=== PATIENT | female | born 1990 | race Two or more races ===

== ENCOUNTER 2017-07-16 09:27 | Emergency (ER) | payer MEDICAID ==
[~2017-07-16] VITALS: Ht 162.6 cm; Wt 68.0 kg
[2017-07-16] MEDS ORDERED: NKM (09:36)
[2017-07-16 09:40] VITALS: BP 105/66
[2017-07-16 10:05] LABS: APPEARANCE,URINE CLEAR; BILIRUBIN, URINE NEGATIVE (NEGATIVE); COLOR,URINE PALE YELLOW; GLUCOSE, URINE (UA) NEGATIVE (NEGATIVE); HEMATOCRIT 41.1 % (37.0-47.0); HEMOGLOBIN 13.2 G/DL (12.0-16.0); KETONES,URINE NEGATIVE (NEGATIVE); LEUKOCYTE ESTERASE ,URINE 2+ (NEGATIVE); MEAN CORPUSCULAR VOLUME 88 FL (80-99); NITRITE,URINE NEGATIVE (NEGATIVE); PH,URINE 5 (4.5-8.0); PLATELET COUNT 272 K/UL (150-450); PROTEIN,URINE NEGATIVE (NEGATIVE); RED BLOOD COUNT 4.69 M/UL (4.20-5.40); RED CELL DISTRIBUTION WIDTH 12.5 % (11.6-14.8); UROBILINOGEN,URINE NORMAL MG/DL (0.0-1.0); WHITE BLOOD COUNT 15.7 K/UL (4.8-10.8)
[2017-07-16 10:21] LABS: ALANINE AMINOTRANSFERASE 16 U/L (12-78); ALKALINE PHOSPHATASE 71 U/L (46-116); ANION GAP 12 mmol/L (5-15); ASPARTATE AMINO TRANSFERASE 14 U/L (15-37); BILIRUBIN,TOTAL 0.7 MG/DL (0.2-1.0); BLOOD UREA NITROGEN 12 mg/dL (7-18); CALCIUM 8.8 MG/DL (8.5-10.1); CARBON DIOXIDE 23 MMOL/L (21-32); CHLORIDE 104 MMOL/L (98-107); CREATININE 0.7 MG/DL (0.55-1.30); POTASSIUM 3.5 MMOL/L (3.5-5.1); SODIUM 139 MMOL/L (136-145)
--- NOTE | 2017-07-16 11:02 | Emergency Room Report ---
History of Present Illness General Chief Complaint: Abdominal Pain Source: Patient Present Illness [facility] Patient complains of mid abdominal pain epigastric and mid abdominal Started last night patient denies any vomiting or diarrhea Denies any chest pain or shortness of breath pain is 3/10 Patient denies any vaginal discharge denies any fall or trauma Pain is a burning sensation and squeezing Denies any other focal weakness Denies any change with eating or position Allergies: Coded Allergies: No Known Allergies (Unverified , 07/16/17) Patient History Past Medical History: see triage record Pertinent Family History: none Last Menstrual Period: Two weeks ago Now: No Reviewed Nursing Documentation: PMH: Agreed, PSxH: Agreed Nursing Documentation-PMH Past Medical History: No Stated History Review of Systems All Other Systems: negative except mentioned in HPI Physical Exam Vital Signs Date Time Temp Pulse Resp B/P (MAP) Pulse Ox O2 Delivery O2 Flow Rate FiO2 07/16/17 09:33 98.8 81 16 118/78 99 Room Air Sp02 EP Interpretation: reviewed, normal General Appearance: well appearing, no apparent distress Head: normocephalic, atraumatic Eyes: bilateral eye PERRL, bilateral eye EOMI ENT: hearing grossly normal, normal pharynx, TMs + canals normal, uvula midline Neck: full range of motion, supple, no meningismus, no bony tend Respiratory: lungs clear, normal breath sounds, no rhonchi, no respiratory distress, no retraction, no accessory muscle use Cardiovascular #1: normal peripheral pulses, regular rate, rhythm, no edema, no gallop, no JVD, no murmur Gastrointestinal: normal bowel sounds, non tender - On palpation however subjectively points to the mid epigastric mid abdominal area, , soft, no mass, no organomegaly, non-distended, no guarding, no hernia, no pulsatile mass, no rebound Genitourinary: no CVA tenderness Musculoskeletal: normal inspection Neurologic: oriented x3, responsive, motor bike mechanic III-XII nml as tested, motor strength/ tone normal, sensory intact Psychiatric: mood/affect normal Skin: normal color, no rash, warm/dry, palpation normal Lymphatic: normal inspection, no adenopathy Medical Decision Making Diagnostic Impression: Primary Impression: Abdominal pain ER Course With the patient's history and examination, multiple differentials considered, including but not limited to , ectopic , ovarian torsion, gastritis, cholecystitis, pancreatitis, appendicitis Patient's blood work revealed a mildly elevated white blood cell count given the nonspecificity of the discomfort and the patient's presentation CAT scan imaging was evaluated and performed show some questionable enteritis pathology but no other emergent pathology Given this patient was placed on oral antibiotics and will have close outpatient followup Labs Test 07/16/17 09:40 White Blood Count 15.7 K/UL (4.8-10.8) Red Blood Count 4.69 M/UL (4.20-5.40) Hemoglobin 13.2 G/DL (12.0-16.0) Hematocrit 41.1 % (37.0-47.0) Mean Corpuscular Volume 88 FL (80-99) Mean Corpuscular Hemoglobin 28.2 PG (27.0-31.0) Mean Corpuscular Hemoglobin Concent 32.1 G/DL (32.0-36.0) Red Cell Distribution Width 12.5 % (11.6-14.8) Platelet Count 272 K/UL (150-450) Mean Platelet Volume 6.4 FL (6.5-10.1) Neutrophils (%) (Auto) % (45.0-75.0) Lymphocytes (%) (Auto) % (20.0-45.0) Monocytes (%) (Auto) % (1.0-10.0) Eosinophils (%) (Auto) % (0.0-3.0) Basophils (%) (Auto) % (0.0-2.0) Differential Total Cells Counted 100 Neutrophils % (Manual) 86 % (45-75) Lymphocytes % (Manual) 10 % (20-45) Monocytes % (Manual) 4 % (1-10) Eosinophils % (Manual) 0 % (0-3) Basophils % (Manual) 0 % (0-2) Band Neutrophils 0 % (0-8) Platelet Estimate Adequate Platelet Morphology Normal Red Blood Cell Morphology Normal Urine Color Pale yellow Urine Appearance Clear Urine pH 5 (4.5-8.0) Urine Specific [place] 1.020 (1.005-1.035) Urine Protein Negative (NEGATIVE) Urine Glucose (UA) Negative (NEGATIVE) Urine Ketones Negative (NEGATIVE) Urine Occult Blood Negative (NEGATIVE) Urine Nitrite Negative (NEGATIVE) Urine Bilirubin Negative (NEGATIVE) Urine Urobilinogen Normal MG/DL (0.0-1.0) Urine Leukocyte Esterase 2+ (NEGATIVE) Urine RBC 0-2 /HPF (0 - 2) Urine WBC 2-4 /HPF (0 - 2) Urine Squamous Epithelial Cells Moderate /LPF (NONE/OCC) Urine Bacteria Few /HPF (NONE) Urine HCG, Qualitative Negative Sodium Level 139 MMOL/L (136-145) Potassium Level 3.5 MMOL/L (3.5-5.1) Chloride Level 104 MMOL/L (98-107) Carbon Dioxide Level 23 MMOL/L (21-32) Anion Gap 12 mmol/L (5-15) Blood Urea Nitrogen 12 mg/dL (7-18) Creatinine 0.7 MG/DL (0.55-1.30) Estimat Glomerular Filtration Rate > 60 mL/min (>60) Glucose Level 98 MG/DL (74-106) Calcium Level 8.8 MG/DL (8.5-10.1) Total Bilirubin 0.7 MG/DL (0.2-1.0) Aspartate Amino Transf (AST/SGOT) 14 U/L (15-37) Alanine Aminotransferase (ALT/SGPT) 16 U/L (12-78) Alkaline Phosphatase 71 U/L (46-116) Total Protein 8.0 G/DL (6.4-8.2) Albumin 4.0 G/DL (3.4-5.0) Globulin 4.0 g/dL Albumin/Globulin Ratio 1.0 (1.0-2.7) Lipase 165 U/L (73-393) CT/MRI/US Diagnostic Results CT/MRI/US Diagnostic Results : Impression cT abdomen pelvisImpression: Small bowel enteritis suspected involving distal small bowel, especially terminal ileum. Findings are suspicious for inflammatory bowel disease. Please correlate clinically. No abscess or evidence of perforation identified. Last Vital Signs Date Time Temp Pulse Resp B/P (MAP) Pulse Ox O2 Delivery O2 Flow Rate FiO2 07/16/17 09:40 98.6 79 16 105/66 100 Room Air Status: improved Disposition: HOME, SELF-CARE Condition: Improved Scripts Famotidine (PEPCID) 40 Mg Tablet 40 MG PO DAILY, #7 TAB 0 Refills Prov: JIAN GARRISON D.O. 07/16/17 Ondansetron Odt* (ZOFRAN ODT*) 4 Mg Tab.rapdis 4 MG ORAL Q6H Y for Nausea & Vomiting, #10 TAB 0 Refills Prov: JIAN GARRISON D.O. 07/16/17 Ciprofloxacin Hcl* (CIPROFLOXACIN HCL*) 500 Mg Tablet 500 MG ORAL Q12H, #10 TAB 0 Refills Prov: JIAN GARRISON D.O. 07/16/17 Referrals: NOT CHOSEN IPA/MD,REFERRING (PCP) Additional Instructions: Patient is provided with the discharge instructions notified to follow up with primary doctor in the next 2-3 days otherwise return to the er with any worsening symptoms. Please note that this report is being documented using [employer] technology. This can lead to erroneous entry secondary to incorrect interpretation by the dictating instrument. JIAN GARRISON D.O. Jul 16, 2017 11:02
[2017-07-16 11:18] VITALS: BP 96/57
--- NOTE | 2017-07-16 12:36 | Diagnostic Imaging Report ---
Indication: Abdominal pain Technique: Continuous helical transaxial imaging of the abdomen and pelvis was obtained from the lung bases to the pubic symphysis during intravenous contrast administration. Coronal 2-D reformats were also obtained. Study obtained in a Siemens sensation [address] Total Dose length Product (DLP): 5:[address] Dose Index Volume (CTDIvol): 2.15, lung 0.42 mGy Comparison: None Findings: The lung bases are clear. The liver is unremarkable. Gallbladder is unremarkable. Kidneys are unremarkable, pancreas and spleen unremarkable. The terminal ileum is markedly abnormal with thickening of the wall and enhancement, mild distention. The abnormality involves a multiple segments of small bowel but is most severe in the terminal ileum. Findings suspicious for enteritis or terminal ileitis. This does not appear obstructive. There is no transition demonstrated. There is no abscess. A small amount of free fluid is present in the pelvis. The uterus and both ovaries are noted. There may be a complex cyst in the right ovary measuring about 2 cm. The appendix is visualized and appears normal. Impression: Small bowel enteritis suspected involving distal small bowel, especially terminal ileum. Findings are suspicious for inflammatory bowel disease. Please correlate clinically. No abscess or evidence of perforation identified. The CT scanner at [facility] is accredited by the [employer] and the scans are performed using dose optimization techniques as appropriate to a performed exam including Automatic Exposure control.
[2017-07-16] MEDS ORDERED: ZOFRAN ODT4 MG ORAL (13:54)
[2017-07-16] MEDS ORDERED: PEPCID40 MG PO (13:54)
[2017-07-16] MEDS ORDERED: CIPROFLOXACIN500 M2 ORAL (13:54)
[2017-07-16 14:00] VITALS: BP 128/62
== END 2017-07-16 14:01 | disposition home or self-care (01) ==
LOC: EMR 10:04
DX: R10.9 Unspecified abdominal pain (principal)
CPT/HCPCS: 36415; 74177; 80053; 81003; 81025; 83690; 85007; 85025; 99283; Q9967

== ENCOUNTER 2018-09-25 18:05 | Emergency (ER) | payer MEDICAID ==
[~2018-09-25] VITALS: Ht 160 cm; Wt 54.4 kg
[~2018-09-25 18:05] MED LIST: CIPROFLOXACIN500 M2 ORAL; NKM; PEPCID40 MG PO; ZOFRAN ODT4 MG ORAL
[2018-09-25 18:20] VITALS: BP 113/47
--- NOTE | 2018-09-25 18:20 | NUR ---
ED Nurse Note: Pt RICKEYO x4, Turkmen speaker present at ER c/o vaginal spotting with small amount of blood. Pt reported abdominal cramps 3/10 and skin intact. Calm and cooperative with initial assessment.
[2018-09-25 18:56] LABS: ANION GAP 12 mmol/L (5-15); BLOOD UREA NITROGEN 11 mg/dL (7-18); CALCIUM 9.1 MG/DL (8.5-10.1); CARBON DIOXIDE 23 MMOL/L (21-32); CHLORIDE 102 MMOL/L (98-107); CREATININE 0.6 MG/DL (0.55-1.30); POTASSIUM 3.3 MMOL/L (3.5-5.1); SODIUM 137 MMOL/L (136-145)
[2018-09-25 18:59] LABS: BASOPHILS % (AUTO) 0.8 % (0.0-2.0); HEMATOCRIT 36.7 % (37.0-47.0); HEMOGLOBIN 12.2 G/DL (12.0-16.0); LYMPHOCYTES % (AUTO) 32.1 % (20.0-45.0); MEAN CORPUSCULAR VOLUME 84 FL (80-99); MONOCYTES % (AUTO) 5.3 % (1.0-10.0); NEUTROPHILS % (AUTO) 60.8 % (45.0-75.0); PLATELET COUNT 258 K/UL (150-450); RED BLOOD COUNT 4.37 M/UL (4.20-5.40); RED CELL DISTRIBUTION WIDTH 12.6 % (11.6-14.8); WHITE BLOOD COUNT 9.4 K/UL (4.8-10.8)
[2018-09-25 19:02] LABS: ALANINE AMINOTRANSFERASE 17 U/L (12-78); ALBUMIN 4.2 G/DL (3.4-5.0); ALKALINE PHOSPHATASE 78 U/L (46-116); ASPARTATE AMINO TRANSFERASE 14 U/L (15-37); BILIRUBIN,TOTAL 0.6 MG/DL (0.2-1.0)
[2018-09-25 19:17] LABS: APPEARANCE,URINE CLEAR; BILIRUBIN, URINE NEGATIVE (NEGATIVE); COLOR,URINE PALE YELLOW; GLUCOSE, URINE (UA) NEGATIVE (NEGATIVE); KETONES,URINE 3+ (NEGATIVE); LEUKOCYTE ESTERASE ,URINE NEGATIVE (NEGATIVE); NITRITE,URINE NEGATIVE (NEGATIVE); PH,URINE 5 (4.5-8.0); PROTEIN,URINE NEGATIVE (NEGATIVE); UROBILINOGEN,URINE NORMAL MG/DL (0.0-1.0)
--- NOTE | 2018-09-25 19:30 | NUR ---
HAND-OFF: Report given to Madalyn. Pt in bed, stable. lab has been sent.
--- NOTE | 2018-09-25 19:31 | NUR ---
ED Nurse Note: Received report from Chung Lin/DEEP. will continue to monitor.Pt is A/O X4. VSS.
--- NOTE | 2018-09-25 21:13 | Emergency Room Report ---
History of Present Illness General Chief Complaint: Female Urogenital Problems Source: Patient Present Illness HPI Patient presents with spotting and lower abdominal pain. Pain is minimal, rated 3/10, "like ". Took home test which was + yesterday. No fevers, chills, NVD, dysuria. Has had miscarriage in past. No clots. No dizziness, headache, dyspnea, chest pain or dysuria. Last menstruation was in August. Does not know blood type. Allergies: Coded Allergies: No Known Allergies (Unverified , 07/16/17) Patient History Past Medical History: see triage record Social History: Denies: smoking, alcohol use Social History Narrative with - has child at home Reviewed Nursing Documentation: PMH: Agreed; PSxH: Agreed Nursing Documentation-PMH Past Medical History: No Stated History Review of Systems All Other Systems: negative except mentioned in HPI Physical Exam Vital Signs Date Time Temp Pulse Resp B/P (MAP) Pulse Ox O2 Delivery O2 Flow Rate FiO2 09/25/18 18:09 98.4 71 18 113/47 100 Room Air Sp02 EP Interpretation: reviewed, normal General Appearance: well appearing, no apparent distress, GCS 15 Head: normocephalic Eyes: bilateral eye normal inspection, bilateral eye PERRL ENT: moist mucus membranes Neck: supple Respiratory: lungs clear, normal breath sounds Cardiovascular #1: regular rate, rhythm Cardiovascular #2: 2+ radial (R) Gastrointestinal: normal inspection, normal bowel sounds, non tender, no mass, non-distended Genitourinary: no CVA tenderness, deferred - for ultrasound Musculoskeletal: back normal, gait/station normal, normal range of motion Neurologic: alert, oriented x3, grossly normal Psychiatric: mood/affect normal Skin: normal inspection, warm/dry Medical Decision Making Diagnostic Impression: Primary Impression: Threatened miscarriage ER Course Patient with + preg test at home with vaginal spotting and some lower abdominal pain. DDx: ectopic, early , threatened miscarriage, UTI amongst others. Evaluation with labs, ultrasound and blood type. Treatment with IV hydration and tylenol. Labs unremarkable. Rh +. Ultrasound with IUP. Patient improved. Discussed treatment plan and the need for repeat quantitative hCG and follow-up with [employer]. Patient stable for outpatient observation and treatment. Laboratory Tests Test 09/25/18 18:20 09/25/18 18:30 Urine Color Pale yellow Urine Appearance Clear Urine pH 5 (4.5-8.0) Urine Specific [place] 1.025 (1.005-1.035) Urine Protein Negative (NEGATIVE) Urine Glucose (UA) Negative (NEGATIVE) Urine Ketones 3+ (NEGATIVE) H Urine Blood 1+ (NEGATIVE) H Urine Nitrite Negative (NEGATIVE) Urine Bilirubin Negative (NEGATIVE) Urine Urobilinogen Normal MG/DL (0.0-1.0) Urine Leukocyte Esterase Negative (NEGATIVE) Urine RBC 2-4 /HPF (0 - 2) H Urine WBC 0-2 /HPF (0 - 2) Urine Squamous Epithelial Cells Few /LPF (NONE/OCC) Urine Bacteria Few /HPF (NONE) White Blood Count 9.4 K/UL (4.8-10.8) Red Blood Count 4.37 M/UL (4.20-5.40) Hemoglobin 12.2 G/DL (12.0-16.0) Hematocrit 36.7 % (37.0-47.0) L Mean Corpuscular Volume 84 FL (80-99) Mean Corpuscular Hemoglobin 27.9 PG (27.0-31.0) Mean Corpuscular Hemoglobin Concent 33.2 G/DL (32.0-36.0) Red Cell Distribution Width 12.6 % (11.6-14.8) Platelet Count 258 K/UL (150-450) Mean Platelet Volume 5.4 FL (6.5-10.1) L Neutrophils (%) (Auto) 60.8 % (45.0-75.0) Lymphocytes (%) (Auto) 32.1 % (20.0-45.0) Monocytes (%) (Auto) 5.3 % (1.0-10.0) Eosinophils (%) (Auto) 1.0 % (0.0-3.0) Basophils (%) (Auto) 0.8 % (0.0-2.0) Prothrombin Time 10.7 SEC (9.30-11.50) Prothrombin Time INR 1.0 (0.9-1.1) PTT 30 SEC (23-33) Sodium Level 137 MMOL/L (136-145) Potassium Level 3.3 MMOL/L (3.5-5.1) L Chloride Level 102 MMOL/L (98-107) Carbon Dioxide Level 23 MMOL/L (21-32) Anion Gap 12 mmol/L (5-15) Blood Urea Nitrogen 11 mg/dL (7-18) Creatinine 0.6 MG/DL (0.55-1.30) Estimate Glomerular Filtration Rate > 60 mL/min (>60) Glucose Level 90 MG/DL (74-106) Calcium Level 9.1 MG/DL (8.5-10.1) Total Bilirubin 0.6 MG/DL (0.2-1.0) Aspartate Amino Transferase (AST) 14 U/L (15-37) L Alanine Aminotransferase (ALT) 17 U/L (12-78) Alkaline Phosphatase 78 U/L (46-116) Total Protein 8.3 G/DL (6.4-8.2) H Albumin 4.2 G/DL (3.4-5.0) Globulin 4.1 g/dL Albumin/Globulin Ratio 1.0 (1.0-2.7) Lipase 170 U/L (73-393) Human Chorionic Gonadotropin, Quant 91608 mIU/mL (1-6) H CT/MRI/US Diagnostic Results CT/MRI/US Diagnostic Results : Imaging Test Ordered: US pelvis Impression IUP, no pole Last Vital Signs Date Time Temp Pulse Resp B/P (MAP) Pulse Ox O2 Delivery O2 Flow Rate FiO2 09/25/18 18:20 98.4 87 18 113/47 100 Room Air Status: improved Disposition: HOME, SELF-CARE Condition: Improved Scripts Edl341/Iron Fumarate/Fa/Dss ( 19 TABLET) 1 Each Tablet 1 EACH PO DAILY, #30 TAB Prov: Cristian Burleson MD 09/25/18 Acetaminophen (Tylenol) 325 Mg Tablet 650 MG ORAL Q6H PRN for Prn Pain/Headache/Temp > 101, #20 TAB 0 Refills Prov: Cristian Burleson MD 09/25/18 Referrals: NOT CHOSEN IPA/,REFERRING (PCP) Cristian Burleson MD Sep 25, 2018 21:13
[2018-09-25] MEDS ORDERED: PRENATAL 19 TA1 EAC1 PO (21:15)
[2018-09-25] MEDS ORDERED: TYLENOL325 MG ORAL (21:15)
[2018-09-25 21:24] VITALS: BP 113/47
--- NOTE | 2018-09-25 21:24 | NUR ---
ED Nurse Note: Pt has seen t by Dr. Burleson, all orders carried out. D/c instrustuction and prescription given to Pt and verbalized understanding. IV/ID band removed, Pt d/c from ED with steady gait.
--- NOTE | 2018-09-26 09:05 | NUR ---
Note brandenone in EDM - 09/26/18 at 0908 by EMILY ED Nurse Note: Pt has seen t by Dr. Burleson, all orders carried out. D/c instrustuction and prescription given to Pt and verbalized understanding. IV/ID band removed, Pt d/c from ED with steady gait.
--- NOTE | 2018-09-26 10:51 | Diagnostic Imaging Report ---
Indication: Positive . Vaginal bleeding and pelvic pain Technique: Grayscale and duplex Doppler imaging of the pelvis performed utilizing a transabdominal scan and endovaginal scan. Comparison: None Findings: Cystic structure demonstrated in the central part of the uterus. Yolk sac is noted. No pole identified. Based on mean sac diameter, gestational age is estimated at 5 weeks one day. Findings may be due to normal early intrauterine versus spontaneous missed . Correlate with serial quantitative beta-hCG upon follow-up. Follow-up ultrasound suggested as well. Tiny nabothian cyst noted in the cervix. No free fluid identified. Both ovaries show dopplerable blood flow and appear normal. IMPRESSION: 5 week one day intrauterine . Viability indeterminate at this time. Considerations include early normal intrauterine versus spontaneous incomplete . Correlate clinically and suggest follow up quantitative beta-hCG.
== END 2018-09-25 21:24 | disposition home or self-care (01) ==
LOC: EMR 18:30
DX: O20.0 Threatened abortion (principal); Z3A.01 Less than 8 weeks gestation of pregnancy
CPT/HCPCS: 36415; 76801; 76830; 80053; 81003; 83690; 84702; 85025; 85610; 85730; 86850; 86900; 86901; 96360; 99284

== ENCOUNTER 2018-11-04 12:40 | Emergency (ER) | payer MEDICAID ==
[~2018-11-04] VITALS: Ht 154.9 cm; Wt 49.9 kg
[~2018-11-04 12:40] MED LIST changes: +PRENATAL 19 TA1 EAC1 PO; +TYLENOL325 MG ORAL
[2018-11-04 12:50] VITALS: BP 101/61
--- NOTE | 2018-11-04 12:50 | NUR ---
ED Nurse Note: 9 WEEKS PATIENT AMBULATED IN TO ER FROM HOME WITH PT'S BOYFRIEND DUE TO VAGINAL BRIGHT RED BLEEDING WITH CRAMPING PAIN 5/10 SINCE THIS MORNING 3 AM. PER PT, VAGINAL BLEEDING WITH CLOTS INCREASED PAST 1 HOUR. NO S/S OF SOB AT THIS TIME.
--- NOTE | 2018-11-04 12:51 | NUR ---
ED Nurse Note:
--- NOTE | 2018-11-04 12:54 | NUR ---
ED Nurse Note: blood sepcimens sent down to the lab.
--- NOTE | 2018-11-04 13:01 | NUR ---
ED Nurse Note: PT WENT DOWN FOR US VIA [facility]
[2018-11-04 13:02] LABS: BASOPHILS % (AUTO) 0.9 % (0.0-2.0); EOSINOPHILS % (AUTO) 1.1 % (0.0-3.0); HEMATOCRIT 37.6 % (37.0-47.0); HEMOGLOBIN 12.2 G/DL (12.0-16.0); LYMPHOCYTES % (AUTO) 22.5 % (20.0-45.0); MEAN CORPUSCULAR VOLUME 86 FL (80-99); MONOCYTES % (AUTO) 4.1 % (1.0-10.0); NEUTROPHILS % (AUTO) 71.4 % (45.0-75.0); PLATELET COUNT 233 K/UL (150-450); RED BLOOD COUNT 4.36 M/UL (4.20-5.40); RED CELL DISTRIBUTION WIDTH 12.7 % (11.6-14.8); WHITE BLOOD COUNT 9.8 K/UL (4.8-10.8)
[2018-11-04 13:13] LABS: ANION GAP 12 mmol/L (5-15); BLOOD UREA NITROGEN 10 mg/dL (7-18); CALCIUM 8.7 MG/DL (8.5-10.1); CARBON DIOXIDE 24 MMOL/L (21-32); CHLORIDE 101 MMOL/L (98-107); CREATININE 0.6 MG/DL (0.55-1.30); POTASSIUM 3.3 MMOL/L (3.5-5.1); SODIUM 137 MMOL/L (136-145)
[2018-11-04 13:18] LABS: ALANINE AMINOTRANSFERASE 13 U/L (12-78); ALBUMIN 3.6 G/DL (3.4-5.0); ALBUMIN/GLOBULIN RATIO 0.8 (1.0-2.7); ALKALINE PHOSPHATASE 68 U/L (46-116); ASPARTATE AMINO TRANSFERASE 15 U/L (15-37); BILIRUBIN,TOTAL 0.7 MG/DL (0.2-1.0)
--- NOTE | 2018-11-04 13:30 | NUR ---
ED Nurse Note: PT IS BACK FROM US. PT REMAINS STABLE.
[2018-11-04] MEDS ORDERED: Ketorolac 30mg Inj IV ONE (14:15)
[2018-11-04 14:27] LABS: APPEARANCE,URINE CLOUDY; BILIRUBIN, URINE NEGATIVE (NEGATIVE); GLUCOSE, URINE (UA) NEGATIVE (NEGATIVE); KETONES,URINE NEGATIVE (NEGATIVE); LEUKOCYTE ESTERASE ,URINE 1+ (NEGATIVE); NITRITE,URINE NEGATIVE (NEGATIVE); PH,URINE 5 (4.5-8.0); PROTEIN,URINE 3+ (NEGATIVE); UROBILINOGEN,URINE NORMAL MG/DL (0.0-1.0)
[2018-11-04 14:28] LABS: COLOR,URINE RED
--- NOTE | 2018-11-04 14:51 | Emergency Room Report ---
History of Present Illness General Chief Complaint: Complications Source: Patient Present Illness [facility] Patient reports that she is approximately 9 weeks initially about a month ago had vaginal bleeding and was here Over the past several days patient again started having heavier vaginal bleeding with cramping Denies any chest pain or shortness of breath patient is a Denies any vomiting or diarrhea Allergies: Coded Allergies: No Known Allergies (Unverified , 07/16/17) Patient History Past Medical History: see triage record Pertinent Family History: none Now: Yes - 9 weeks Reviewed Nursing Documentation: PMH: Agreed; PSxH: Agreed Nursing Documentation-PMH Past Medical History: No Stated History Review of Systems All Other Systems: negative except mentioned in HPI Physical Exam Vital Signs Date Time Temp Pulse Resp B/P (MAP) Pulse Ox O2 Delivery O2 Flow Rate FiO2 11/04/18 12:50 98.0 85 13 101/61 95 Room Air Sp02 EP Interpretation: reviewed, normal General Appearance: well appearing, no apparent distress Head: normocephalic, atraumatic Eyes: bilateral eye PERRL, bilateral eye EOMI ENT: hearing grossly normal, normal pharynx, TMs + canals normal, uvula midline Neck: full range of motion, supple, no meningismus, no bony tend Respiratory: lungs clear, normal breath sounds, no rhonchi, no respiratory distress, no retraction, no accessory muscle use Cardiovascular #1: normal peripheral pulses, regular rate, rhythm, no edema, no gallop, no JVD, no murmur Gastrointestinal: normal bowel sounds, non tender, soft, no mass, no organomegaly, non-distended, no guarding, no hernia, no pulsatile mass, no rebound Genitourinary: other - Large amounts of clots produced and removed, patient tolerated well Musculoskeletal: normal inspection Neurologic: oriented x3, responsive, tanning solution maker III-XII nml as tested, motor strength/ tone normal, sensory intact Psychiatric: mood/affect normal Skin: normal color, no rash, warm/dry, palpation normal Lymphatic: normal inspection, no adenopathy Medical Decision Making Diagnostic Impression: Primary Impression: incomplete miscarriage ER Course With the patient's history and examination, multiple differentials considered, including but not limited to , ectopic , ovarian torsion, gastritis, cholecystitis, pancreatitis, appendicitis Patient's ultrasound shows miscarriage in progress Patient had pelvic performed with female nurse at bedside Large amounts of clots were removed And patient did feel symptomatically much improved Patient further hydrated blood pressure has improved and at this time stable for initial conservative outpatient trial Patient did have a miscarriage last year as well and did not require any further intervention Labs Test 11/04/18 12:50 11/04/18 13:40 White Blood Count 9.8 K/UL (4.8-10.8) Red Blood Count 4.36 M/UL (4.20-5.40) Hemoglobin 12.2 G/DL (12.0-16.0) Hematocrit 37.6 % (37.0-47.0) Mean Corpuscular Volume 86 FL (80-99) Mean Corpuscular Hemoglobin 27.9 PG (27.0-31.0) Mean Corpuscular Hemoglobin Concent 32.4 G/DL (32.0-36.0) Red Cell Distribution Width 12.7 % (11.6-14.8) Platelet Count 233 K/UL (150-450) Mean Platelet Volume 6.1 FL (6.5-10.1) Neutrophils (%) (Auto) 71.4 % (45.0-75.0) Lymphocytes (%) (Auto) 22.5 % (20.0-45.0) Monocytes (%) (Auto) 4.1 % (1.0-10.0) Eosinophils (%) (Auto) 1.1 % (0.0-3.0) Basophils (%) (Auto) 0.9 % (0.0-2.0) Sodium Level 137 MMOL/L (136-145) Potassium Level 3.3 MMOL/L (3.5-5.1) Chloride Level 101 MMOL/L (98-107) Carbon Dioxide Level 24 MMOL/L (21-32) Anion Gap 12 mmol/L (5-15) Blood Urea Nitrogen 10 mg/dL (7-18) Creatinine 0.6 MG/DL (0.55-1.30) Estimat Glomerular Filtration Rate > 60 mL/min (>60) Glucose Level 93 MG/DL (74-106) Calcium Level 8.7 MG/DL (8.5-10.1) Total Bilirubin 0.7 MG/DL (0.2-1.0) Aspartate Amino Transf (AST/SGOT) 15 U/L (15-37) Alanine Aminotransferase (ALT/SGPT) 13 U/L (12-78) Alkaline Phosphatase 68 U/L (46-116) Total Protein 8.0 G/DL (6.4-8.2) Albumin 3.6 G/DL (3.4-5.0) Globulin 4.4 g/dL Albumin/Globulin Ratio 0.8 (1.0-2.7) Lipase 165 U/L (73-393) Human Chorionic Gonadotropin, Quant 4266 mIU/mL (1-6) Urine Color Red Urine Appearance Cloudy Urine pH 5 (4.5-8.0) Urine Specific [place] 1.015 (1.005-1.035) Urine Protein 3+ (NEGATIVE) Urine Glucose (UA) Negative (NEGATIVE) Urine Ketones Negative (NEGATIVE) Urine Blood 5+ (NEGATIVE) Urine Nitrite Negative (NEGATIVE) Urine Bilirubin Negative (NEGATIVE) Urine Urobilinogen Normal MG/DL (0.0-1.0) Urine Leukocyte Esterase 1+ (NEGATIVE) Urine RBC Tntc /HPF (0 - 2) Urine WBC 2-4 /HPF (0 - 2) Urine Squamous Epithelial Cells Few /LPF (NONE/OCC) Urine Bacteria Few /HPF (NONE) CT/MRI/US Diagnostic Results CT/MRI/US Diagnostic Results : Impression pelvic ultrasound:IMPRESSION: Blood products within the endocervical and endometrial canal seen in the context of active vaginal bleeding, which may be related to a spontaneous but not necessarily. No obvious products of conception are identified. There is no IUP identified. The findings are nonspecific. Ectopic is not excluded. Follow-up ultrasound and serial quantitative beta hCG are recommended. Last Vital Signs Date Time Temp Pulse Resp B/P (MAP) Pulse Ox O2 Delivery O2 Flow Rate FiO2 11/04/18 12:50 98.0 85 13 101/61 95 Room Air Status: improved Disposition: HOME, SELF-CARE Condition: Improved Scripts Ibuprofen* (MOTRIN*) 600 Mg Tablet 600 MG ORAL Q8H PRN for For Pain, #20 TAB 0 Refills Prov: Case Nunes DO 11/04/18 Referrals: NOT CHOSEN IPA/MD,REFERRING (PCP) Patient Instructions: Incomplete Miscarriage Additional Instructions: Patient is provided with the discharge instructions notified to follow up with modular home crew member doctor in the next 2-3 days otherwise return to the er with any worsening symptoms. Please note that this report is being documented using [employer] technology. This can lead to erroneous entry secondary to incorrect interpretation by the dictating instrument. Case Nunes DO Nov 04, 2018 14:51
[2018-11-04] MEDS ORDERED: IBUPROFEN600 MG ORAL (14:56)
--- NOTE | 2018-11-04 15:07 | NUR ---
ED Nurse Note: Per Dr. Luo that pt can be discharge once the SBP is above 92.
--- NOTE | 2018-11-04 15:25 | Diagnostic Imaging Report ---
Indication: . Vaginal bleeding pelvic pain Technique: Grayscale and duplex Doppler imaging of the pelvis performed utilizing a transabdominal scan and endovaginal scan. Comparison: None Findings: Heterogeneous structure noted within the endometrial canal hypoechoic relative to the surrounding endometrium. The endocervical canal is open and there is evidence of flow and movement within the canal. Patient was actively bleeding vaginally during the study and the findings likely indicative of blood within the endometrial and endocervical canal. No fetus identified or gestational sac identified. There is no free fluid. Neither ovary is seen. No adnexal mass identified. IMPRESSION: Blood products within the endocervical and endometrial canal seen in the context of active vaginal bleeding, which may be related to a spontaneous but not necessarily. No obvious products of conception are identified. There is no IUP identified. The findings are nonspecific. Ectopic is not excluded. Follow-up ultrasound and serial quantitative beta hCG are recommended.
[2018-11-04 15:52] VITALS: BP 95/46
--- NOTE | 2018-11-04 15:53 | NUR ---
ER DISCHARGE NOTE: Per Dr. Luo, it is ok to discharge pt once SBP is above 92. Pt's BP is now 95/46. Denies any dizziness nor SOB. Patient is cleared to be discharged per ERMD, pt is aox4, on room air, with stable vital signs. pt was given dc and prescription instructions, pt was able to verbalize understanding, pt id band and iv site removed without complications. pt is able to ambulate with steady gait. pt took all belongings.
== END 2018-11-04 15:56 | disposition home or self-care (01) ==
LOC: EMR 13:14
DX: O03.4 Incomplete spontaneous abortion without complication (principal)
CPT/HCPCS: 36415; 76801; 76830; 80053; 81003; 83690; 84702; 85025; 86900; 86901; 96361; 96374; 99284; J1885